=== PATIENT | female | born 1995 | race Caucasian/White ===

== ENCOUNTER 2019-09-10 09:26 | Emergency (ER) | payer BC ==
[2019-09-10] MEDS ORDERED: NS 0.9% 1000 ML** 1,000 ML IV ONE (11:06)
--- NOTE | 2019-09-10 11:06 | ED ---
HPI Chest Pain - HPI Summary HPI Summary: 24 year old F presenting to [facility] accompanied by boyfriend Kiran complains of worsening sharp pain located under her left breast that started last night while she was sitting on the couch. Denies nausea, back painStates she has never had these symptoms before. States she took 2 tablets of regular strength Tylenol with mild relief at 06:30 today. Pain is again increasing. No recent fall/injury/trauma. The patient rates the pain 5/10 in severity per nurse triage note. Symptoms aggravated by inspiration and bending over forward. Does not feel SOB but pain increases with deep inspiration. Symptoms alleviated by pulling shoulders back in an upright position. Patient states she is 29 weeks . Reports feeling good,a active movement, no vaginal LOF. She is followed by [facility]. States she called them today, spoke to nurse Powder Truck Driver and was referred to the ED. States she feels baby movements but not kicking up on to her ribs. Denies vaginal discharge, vaginal bleeding, burning/pain with urination. States she takes vitamins. Last ultrasound was 20 weeks ago. No smoking, drugs, alcohol. Patient is employed at [employer]. Patients medication reviewed this visit. - History of Current Complaint Chief Complaint: EDChestWallPain Time Seen by Provider: 09/10/19 09:53 Hx Obtained From: Patient Onset/Duration: Started Hours Ago, Still Present Timing: Constant Current Severity: Moderate Pain Intensity: 5 Pain Scale Used: 0-10 Numeric Character: Sharp/Stabbing Aggravating Factor(s): Other: - inspiration, bending over forward Alleviating Factor(s): Other: - pulling shoulders back in an upright position Associated Signs and Symptoms: Positive: Negative - nausea, back pain, vaginal discharge, vaginal bleeding, burning/pain with urination - Allergy/Home Medications Allergies/Adverse Reactions: Allergies Allergy/AdvReac Type Severity Reaction Status Date / Time No Known Allergies Allergy Verified 12/09/15 13:12 Home Medications: Home Medications [id number]/Iron Fum/Folic/Docusate [ 19 Tablet] 1 each PO DAILY 09/10/19 [ History Confirmed 09/10/19] PMH/Surg Hx/FS Hx/Imm Hx Previously Healthy: Yes Endocrine/Hematology History: Denies: Hx Diabetes, Hx Thyroid Disease Cardiovascular History: Denies: Hx Hypertension Respiratory History: Denies: Hx Asthma, Hx Chronic Obstructive Pulmonary Disease (COPD) GI History: Denies: Hx Ulcer - Surgical History Surgery Procedure, Year, and Place: None Infectious Disease History: No Infectious Disease History: Denies: Hx Hepatitis, Traveled Outside the [place] in Last 30 Days - Family History Known Family History: Positive: Non-Contributory Negative: Diabetes - Social History Occupation: Employed Full-time - at [employer] Lives: With Family Alcohol Use: None Hx Substance Use: No Substance Use Type: Reports: None Hx Tobacco Use: Yes Smoking Status (MU): Former Smoker Review of Systems Constitutional: Negative Eyes: Negative ENT: Negative Positive: Chest Pain Gastrointestinal: Negative Negative: Nausea Genitourinary: Negative - vaginal bleeding Negative: burning, discharge, pain Musculoskeletal: Negative - back pain Skin: Negative Neurological: Negative All Other Systems Reviewed And Are Negative: Yes Physical Exam - Summary Physical Exam Summary: Vital Signs Reviewed: Yes A+Ox3, mild discomfort Eyes: Conjunctiva Clear, AUR[place]A. EOM intact and full ENT: Hearing grossly normal mmoist, uvula midline, no exudate, no erythema Neck: Positive: Supple Respiratory: Positive: No respiratory distress, No accessory muscle use + CTA throughout no w/r Cardiovascular: RRR nl s1, s2 no m/r CBT <2 sec mild discomfort epigastric with direct palp - no guarding, no rebound mild pain with palpation of ribs abd soft gravid, + BS nt/nd no guarding, no distension Musculoskeletal Exam: DE LA GARZA x 4 without difficulty Strength Intact, ROM Intact Neurological: Positive: Alert, + sensation throughout Psychological: Positive: Normal Response To Family Skin: Positive: no rash, no ecchymosis Triage Information Reviewed: Yes Vital Signs On Initial Exam: Initial Vitals Temp Pulse Resp BP Pulse Ox 98.6 F 78 16 144/80 98 09/10/19 09:32 09/10/19 09:32 09/10/19 09:32 09/10/19 09:32 09/10/19 09:32 Vital Signs Reviewed: Yes Procedures - Sedation Patient Received Moderate/Deep Sedation with Procedure: No Diagnostics - Vital Signs Vital Signs Temp Pulse Resp BP Pulse Ox 09/10/19 10:17 83 133/86 97 09/10/19 10:00 81 96 09/10/19 09:49 80 99 09/10/19 09:47 88 142/94 98 09/10/19 09:32 98.6 F 78 16 144/80 98 - Laboratory Result Diagrams: 09/10/19 11:28 Lab Statement: Any lab studies that have been ordered have been reviewed, and results considered in the medical decision making process. - CT Chest CTA CT Interpretation Completed By: Radiologist Summary of CT Findings: SLIGHTLY LIMITED EXAM, NO EVIDENCE FOR PULMONARY EMBOLISM. ED physician has reviewed this report. - EKG 1001 Cardiac Rate: NL - 74 BPM EKG Rhythm: Sinus Rhythm Summary of EKG Findings: No acute STT changes Re-Evaluation - Re-Evaluation First Eval Re-Evaluation Time: 11:38 Change: Unchanged - HR in the 130s per nurse Second Eval Re-Evaluation Time: 12:14 Change: Unchanged Comment: reviewed conversation with Dr. Zabala - risks of imaging. agreeable to have CTA Chest. had minimal improvement with Tylenol. declined narcotics. will give more fluids. states she spoke to nurse news specialist at [facility] [employer] PROJECT MANAGER Third Eval Re-Evaluation Time: 14:10 Change: Unchanged Comment: informed of CTA Chest results. agrees to discharge. will give work note. strict return precautions - sob, fever, uncontrolled pain. contact obgyn hospitalist physician for f/u this week. pt's mother also in room at this time Chest Pain Course/Dx - Course Course Of Treatment: Patient's a 24-year-old female who is 29 weeks presenting with sharp left pain under her left ribs since last night. Patient states history respiratory no trauma. Patient shortness of breath but states pain is worse with deep breath. Patient to take Tylenol this morning around 6: 30 with mild improvement. Hasn't taken an analgesic since. Patient states she spoke to [facility] who sent her to the ED. Patient without a history of blood clots personally examined. No calf pain or cramping. Patient denies lightheadedness. EKG was reviewed. She does have inverted T-wave in 3 but otherwise no acute process noted. Vital signs are stable. Discussed with patient options. At this time patient will take some Tylenol declined morphine. Discussed the patient will check labs and touch base with [employer]S [employer]INE[employer]. not tachy, sats 98%. Will do a d-dimer. Patient needs imaging likely with CTA will discuss with SYSTEMS TEST ENGINEER and radiology first. Patient and significant other in agreement with plan. Will reassess. We'll also document heart tones. - Diagnoses Provider Diagnoses: Pleuritic pain - Provider Notifications Discussed Care Of Patient With: Ayse Gruber Time Discussed With Above Provider: 12:00 Instructed by Provider To: Other - Dr. Gruber OBGYN, recommends CTA Chest Discharge ED - Sign-Out/Discharge Documenting (check all that apply): Patient Departure - Discharge Plan Condition: Stable Disposition: HOME Patient Education Materials: Pleurisy (DC) Forms: *Gen. Provider Communication, *Work Release Referrals: Elena Floyd CNM [Certified Nurse Powder Truck Driver] - No Primary Care Phys,NOPCP [Primary Care Provider] - Additional Instructions: - stay well hydrated - drink plenty of non-alcoholic, non-caffinated beverages - take deep, slow breaths several times and hour to help fully expand your lungs - continue to take your vitamins. - Okay to take Tylenol every 6 hours as needed for pain - Okay to apply heat to your rib area - contact your nurse-news specialist to schedule a recheck this week. If you develop a fever, contact your nurse news specialist or return to the emergency department - Billing Disposition and Condition Condition: STABLE Disposition: Home - Attestation Statements Document Initiated by Scribe: Yes Documenting Scribe: Aretha Maldonado Provider For Whom Nigel is Documenting (Include Credential): Demetria Mascorro MD Scribe Attestation: Aretha Guo, scribed for Demetria Mascorro MD on 09/14/19 at 1617. Scribe Documentation Reviewed: Yes Provider Attestation: The documentation as recorded by the scribeAretha accurately reflects the service I personally performed and the decisions made by me, Demetria Mascorro MD Status of Scribe Document: Viewed
[2019-09-10] MEDS ORDERED: Acetaminophen TAB* 325 MG PO ONE (11:07)
[2019-09-10 11:56] LABS: Albumin 3.4 g/dL (3.2-5.2); Albumin/Globulin Ratio 1.2 (1-3); BUN/Creatinine Ratio 17.8 (8-20); Calcium 8.6 mg/dL (8.6-10.3); EGFR African American 203.8 (>60); EGFR Non-African American 168.4 (>60); Globulin 2.8 g/dL (2-4); Magnesium 1.7 mg/dL (1.9-2.7); Potassium 4.2 mmol/L (3.5-5.0); Total Bilirubin 0.3 mg/dL (0.2-1.0); Total Protein 6.2 g/dL (6.4-8.9)
[2019-09-10] MEDS ORDERED: NS 0.9% 1000 ML** 1,000 ML IV SCH (12:15)
[2019-09-10] MEDS ORDERED: Magnesium Sulfate 2 GM IV* 2 GM/50 ML BAG IVPB ONE (12:21)
[2019-09-10] MEDS ORDERED: Iohexol 350* (CONTRAST) 500 ML MDV IV ONE (12:53)
[2019-09-10 13:06] LABS: Urine Appearance Clear; Urine Bilirubin Negative (Negative); Urine Blood Negative (Negative); Urine Color Straw; Urine Glucose Negative (Negative); Urine Ketones Negative (Negative); Urine Nitrite Negative (Negative); Urine Protein Negative (Negative); Urine Specific Gravity 1.005 (1.010-1.030); Urine Urobilinogen Negative (Negative)
[2019-09-10 14:22] VITALS: BP 126/80
== END 2019-09-10 14:20 | disposition home or self-care (01) ==
LOC: ED 09:26
DX: R07.81 Pleurodynia (principal); Z87.891 Personal history of nicotine dependence
CPT/HCPCS: 36415; 71275; 80053; 81003; 83735; 84484; 85379; 93005; 96361; 96365; 99283; A9270-GY; J3475; Q9967

== ENCOUNTER 2019-11-14 11:34 | Inpatient (IN) | payer BC ==
[2019-11-14 12:03] LABS: Urine Appearance Cloudy; Urine Bilirubin Negative (Negative); Urine Blood Negative (Negative); Urine Color Yellow; Urine Glucose Negative (Negative); Urine Ketones Negative (Negative); Urine Nitrite Negative (Negative); Urine Protein 1+(30 mg/dL) (Negative); Urine Urobilinogen Negative (Negative)
[2019-11-14 12:06] LABS: Urine Bacteria 1+ (Absent); Urine Red Blood Cell Trace(0-2/hpf) (Absent); Urine Squamous Epithelial Cell Present (Absent); Urine White Blood Cell 2+(11-20/hpf) (Absent)
[2019-11-14 12:26] LABS: Urine Benzodiazepine Screen None Detected (None Detect); Urine Opiates Screen None Detected (None Detect)
[2019-11-14 12:43] LABS: ABS Lymphocytes 1.1 10^3/ul (1.0-4.8); ABS Monocytes 0.5 10^3/ul (0-0.8); ABS Neutrophils 6.3 10^3/ul (1.5-7.7); Eosinophil % 0.1 %; Hematocrit 34 % (35-47); Hemoglobin 11.8 g/dL (12.0-16.0); Lymphocyte % 13.8 %; Mean Corpuscular HGB Conc 35 g/dL (31-36); Mean Corpuscular Hemoglobin 32 pg (27-31); Mean Corpuscular Volume 92 fL (80-97); Mean Platelet Volume 9.7 fL (7.4-10.4); Nucleated Red Blood Cells % 0.1; Platelet Count 115 10^3/uL (150-450); Red Blood Count 3.65 10^6 /uL (3.70-4.87); Red Cell Distribution Width 13 % (10-15); White Blood Count 7.8 10^3/uL (3.5-10.8)
[2019-11-14 12:46] LABS: Albumin 3.2 g/dL (3.2-5.2); Albumin/Globulin Ratio 1.1 (1-3); BUN/Creatinine Ratio 18.5 (8-20); Calcium 8.8 mg/dL (8.6-10.3); EGFR African American 165.1 (>60); EGFR Non-African American 136.5 (>60); Globulin 2.8 g/dL (2-4); Potassium 3.4 mmol/L (3.5-5.0); Total Bilirubin 0.2 mg/dL (0.2-1.0); Uric Acid 4.5 mg/dL (2.3-6.6)
[2019-11-14] MEDS ORDERED: Buffered Lidocaine 1% SYRIN* 1 ML/SYRINGE INTRADERM ONE (14:38)
[2019-11-14] MEDS ORDERED: Misoprostol TAB* 100 MCG PO ONE ×2 (14:38→20:26)
[2019-11-14] MEDS ORDERED: Lactated Ringers 1000 ML Bag* 1,000 ML IV ONE (14:38)
--- NOTE | 2019-11-14 15:25 | HP ---
General Information - Reason for Visit Pt admitted for cervical ripening/ IOL in the context of preeclampsia without severe features at 38 3/7 weeks gestation. - General Information Maternal Age: 24 Grav: 2 Para: 0 SAB: 0 IEA: 1 Estimated Due Date: 11/25/19 Determined By: LMP Gestational Age in Weeks/Days: 38 3/7 Maternal Blood Type and Rh: O Positive - Results this Serology/RPR Result: Non-Reactive Rubella Result: Non-Immune HBsAg Result: Negative HIV Result: Negative GBS Culture Result: Negative Past Medical History Delivery History: See Records - primigravida Pertinent Past Medical History: See Records - depression/ anxiety Pertinent Past Surgical History: None Pertinent Family History: Non-Contributory - Antepartal Records Antepartal Records: Reviewed, Complicated by: - thrombocytopenia, preeclampsia, rubella and varicella nonimmune Review of Systems Constitutional: Comfortable CV Complaint: No Respiratory: Shortness of Breath: No Gastrointestinal: No Nausea/Vomiting Genitourinary: No Dysuria, No Bleeding, No Leaking Fluid Musculoskeletal: No Complaint, No Epigastric Pain Neurological: No Headache, No Visual Changes Movement: Normal Exam Allergies/Adverse Reactions: Allergies No Known Allergies Allergy (Verified 12/09/15 13:12) T-99.0, P-96, R-20, BP 145/92, O2-98% Lab Values - Entire Visit: Laboratory Tests 11/14/19 11/14/19 11/14/19 11:55 11:55 12:15 WBC RBC Hgb Hct MCV MCH MCHC RDW Plt Count MPV Neut % (Auto) Lymph % (Auto) Vernon % (Auto) Eos % (Auto) Baso % (Auto) Absolute Neuts (auto) Absolute Lymphs (auto) Absolute Monos (auto) Absolute Eos (auto) Absolute Basos (auto) Absolute Nucleated RBC Nucleated RBC % Sodium 138 Potassium 3.4 L Chloride 109 Carbon Dioxide 20 L Anion Gap 9 BUN 10 Creatinine 0.54 Est GFR ( Amer) 165.1 Est GFR (Non-Af Amer) 136.5 BUN/Creatinine Ratio 18.5 Glucose 110 H Uric Acid 4.5 Calcium 8.8 Total Bilirubin 0.20 AST 13 ALT 9 Alkaline Phosphatase 80 Total Protein 6.0 L Albumin 3.2 Globulin 2.8 Albumin/Globulin Ratio 1.1 Urine Color Yellow Urine Appearance Cloudy Urine pH 6.0 Ur Specific Maynard 1.020 Urine Protein 1+(30 mg/dl) A Urine Ketones Negative Urine Blood Negative Urine Nitrate Negative Urine Bilirubin Negative Urine Urobilinogen Negative Ur Leukocyte Esterase 1+ A Urine WBC (Auto) 2+(11-20/hpf) A Urine RBC (Auto) Trace(0-2/hpf) Ur Squamous Epith Cells Present A Urine Bacteria 1+ A Hyaline Casts Present A Urine Glucose Negative Urine Ascorbic Acid * A Urine Opiates Screen None detected Ur Barbiturates Screen None detected Ur Phencyclidine Scrn None detected Ur Amphetamines Screen None detected U Benzodiazepines Scrn None detected Urine Cocaine Screen None detected U Cannabinoids Screen None detected Blood Type Antibody Screen 11/14/19 11/14/19 12:15 12:15 WBC 7.8 RBC 3.65 L Hgb 11.8 L Hct 34 L MCV 92 MCH 32 H MCHC 35 RDW 13 Plt Count 115 L MPV 9.7 Neut % (Auto) 80.2 Lymph % (Auto) 13.8 Vernon % (Auto) 5.8 Eos % (Auto) 0.1 Baso % (Auto) 0.1 Absolute Neuts (auto) 6.3 Absolute Lymphs (auto) 1.1 Absolute Monos (auto) 0.5 Absolute Eos (auto) 0.0 Absolute Basos (auto) 0.0 Absolute Nucleated RBC 0.0 Nucleated RBC % 0.1 Sodium Potassium Chloride Carbon Dioxide Anion Gap BUN Creatinine Est GFR ( Amer) Est GFR (Non-Af Amer) BUN/Creatinine Ratio Glucose Uric Acid Calcium Total Bilirubin AST ALT Alkaline Phosphatase Total Protein Albumin Globulin Albumin/Globulin Ratio Urine Color Urine Appearance Urine pH Ur Specific Maynard Urine Protein Urine Ketones Urine Blood Urine Nitrate Urine Bilirubin Urine Urobilinogen Ur Leukocyte Esterase Urine WBC (Auto) Urine RBC (Auto) Ur Squamous Epith Cells Urine Bacteria Hyaline Casts Urine Glucose Urine Ascorbic Acid Urine Opiates Screen Ur Barbiturates Screen Ur Phencyclidine Scrn Ur Amphetamines Screen U Benzodiazepines Scrn Urine Cocaine Screen U Cannabinoids Screen Blood Type O Positive Antibody Screen Negative - Measurements Height: 5 ft 4 in Weight: 104.326 kg Weight in lbs: 230.023145 Body Mass Index (BMI): 39.4 Pre- Weight: 77.111 kg Weight Gained This : 60 lbs and 0 ozs - Exam Breast: Breast Exam Deferred CVA: No CVA Tenderness Extremities: Edema - bilateral pedal Heart: Normal Rhythm/Heart Sounds HEENT: No Significant Findings Lungs: Clear Bilaterally Rectal: Rectal Exam Deferred Reflexes: DTR 2+ Thyroid: No Thyromegaly - Abdominal Exam Abdomen Exam: Non-Tender, Fundal Height Consistent with Dates Targeted Exam Findings See L&D Outpatient Visit Provider Note for Findings: N/A Estimated Weight: 8# Cervical Exam: Closed Effacement: Thick Station: High Presenting Part: Vertex Membrane Status: Intact Bleeding/Discharge: None EFM Findings - External Monitor Findings Baseline Heart Rate: 120 External Monitor Findings: Accelerations Present, No Pattern of Variable or Late Decelerations, Variability Moderate, Baseline Stable Contractions: Irregular, Mild Assessment/Plan - Assessment 24 year old at 38 3/7 weeks gestation with preeclampsia without severe features and mild thrombocytopenia, cervix currently unfavorable. No evidence of acidemia, membranes intact. - Obstetrical Risk Factors Obstetrical Risk Factors: Obesity, PreEclampsia - Plan Plan: Cervical Ripening, Admit - Anticipate Vaginal Delivery - Date/Time of Admission Date of Admission: 11/14/19 Time of Admission: 14:43
--- NOTE | 2019-11-14 17:32 | PN ---
Progress Note - Progress Note Date of Service: 11/14/19 SOAP: Subjective: Pt felt ctx initially after misoprostol administration, but now no longer feeling them. Comfortable. and mother at bedside. Objective: Cervical exam deferred. FHR: Baseline 125/ moderate variability/ + accels/ no decels UCs: 3-6 minutes, mild BP: 144/88 Assessment: Pt with preeclampsia without severe features, undergoing cervical ripening. No evidence of acidemia or chorioamnionitis. Plan: Reevaluate in 2 hours or as needed. Consider further cervical ripening at that time
--- NOTE | 2019-11-14 20:36 | PN ---
Progress Note - Progress Note Date of Service: 11/14/19 SOAP: Subjective: Pt fairly comfortable, reports some intermittent cramping, but no strong ctx. Objective: Cervical exam deferred. FHR: Baseline 130/ moderate variability/ + accels/ no decels UCs: mild, irregular BP: 146/ 91 Assessment: Pt with preeclampsia without severe features, undergoing cervical ripening. Not in active labor. Plan: Cervical exam deferred as pt clearly not in active labor, and has difficulty tolerating exams. As she is only frandy irregularly, will do another dose or PO misoprostol.
[2019-11-14] MEDS ORDERED: hydrOXYzine HCL TAB* 50 MG PO ONE (22:41)
[2019-11-15] MEDS ORDERED: Misoprostol TAB* 100 MCG PO ONE (04:32)
--- NOTE | 2019-11-15 04:32 | PN ---
Progress Note - Progress Note Date of Service: 11/15/19 SOAP: Subjective: Pt sleeping comfortably, not aware of ctx Objective: Cervical exam deferred FHR: Baseline 135/ moderate variability/ + accels/ no decels UCs: 3-6 minutes BP: 138/93 Temp: 98.7 Assessment: Pt not in active labor. Preeclampsia without severe features. No evidence of acidemia. Plan: As pt highly intolerant of vaginal exams and not in active labor, will repeat another dose of oral misoprostol. Will plan vaginal exam and reassessment of plan of care 4 hours later or as needed.
[2019-11-15] MEDS ORDERED: Dinoprostone* 10 MG VAG.SUPP VAGINAL ONE (08:31)
--- NOTE | 2019-11-15 08:38 | PN ---
Progress Note - Progress Note Date of Service: 11/15/19 Note: S: States UCs have down since last dose of misoprostol. O: B/P: 138/93, P: 65, R: 16, T: 98.7 FHR: baseline 130, moderate variability, + accelerations, no decelerations UCs: q 2-8, mild VE: closed/high/thick A: IUP at 38 4/7 weeks Category I FHR, no evidence of metabolic acidemia Not in labor GBS negative Preeclampsia without severe features Camacho score: 2 P: Discussed further cervical ripening, recommend Cervidil Irlanda and her agree Reassess PRN Anticipate SVB
--- NOTE | 2019-11-15 23:23 | PN ---
Progress Note - Progress Note Date of Service: 11/15/19 Note: S: Feeling some cramping. Partner at bedside for support O: B/P: 140/94, P: 65, R: 19, T: 98.1 FHR: baseline 120, moderate variability, +accelerations, no decelerations UCs: irregular, mild VE deferred, pt unable to tolerate cervical exam at this time A: IUP at 38 4/7 weeks Category I FHR, no evidence of metabolic acidemia Not in labor P: Offered oral misoprostol vs trial of pitocin vs resting overnight, pt desires trial of pitocin PARQ discussion re: pitocin Continuous EFM while on pitocin Reassess PRN Anticipate SVB
[2019-11-15] MEDS ORDERED: Oxytocin in LR* 20 UNITS/1,000 ML BAG IVPB SCH (23:45)
[2019-11-16] MEDS ORDERED: hydrOXYzine HCL TAB* 50 MG PO ONE ×2 (00:55→21:00)
[2019-11-16] MEDS: Lactated Ringers 1000 ML Bag* 1,000 ML IV SCH (01:24)
--- NOTE | 2019-11-16 09:52 | PN ---
Progress Note - Progress Note Date of Service: 11/16/19 Note: S: Not feeling UCs. Was able to rest at night O: B/P: 145/96, P: 75, R: 20, T: 98.5 FHR: 135, moderate variability, +Accelerations, no decelerations UCs: q 1.5-3, mild VE: Posterior. Unable to reach cervix due to pt discomfort with exam. Suspect unchanged from previous exam Pitocin at 16 mu/min Pitting edema of BLE A: IUP at 38 5/7 weeks Category I FHR, no evidence of metabolic acidemia Not in labor P: Discussed continuing pitocin vs discontinuing and considering further ripening. Will continue pitocin until it has been 12 hrs and reassess at that time. Continue q2hr B/Ps and I&O while awake Anticipate SVB
[2019-11-16] MEDS ORDERED: Ondansetron INJ* 2 MG/ML VIAL IV PRN (10:09)
[2019-11-16] MEDS ORDERED: Misoprostol TAB* 100 MCG PO ONE (13:58)
--- NOTE | 2019-11-16 14:07 | PN ---
Progress Note - Progress Note Date of Service: 11/16/19 Note: S: Feeling comfortable. Partner and grandparents at bedside. O: B/P: 138/98, P: 78, R: 20, T: 98.8 FHR: baseline 140, moderate variability, +accelerations, no decelerations UCs: Irregular, mild VE deferred, do not suspect cervical change since last exam Pitocin off since 1300 1+ pitting edema of BLE A: IUP at 38 5/7 weeks Category I FHR, no evidence of metabolic acidemia P: Discussed options for further cervical ripening. Opts for oral misoprostol 50 mcg Continue I&O, q2hr B/Ps while awake Reassess PRN Anticipate SVB
[2019-11-16] MEDS ORDERED: Lidocaine 2% JELLY* 6 ML JELLY TOPICAL ONE (15:45)
[2019-11-16] MEDS ORDERED: Dinoprostone* 10 MG VAG.SUPP VAGINAL ONE (18:16)
[2019-11-16 19:18] LABS: ABS Lymphocytes 1.6 10^3/ul (1.0-4.8); ABS Monocytes 0.7 10^3/ul (0-0.8); ABS Neutrophils 5.6 10^3/ul (1.5-7.7); Eosinophil % 0.6 %; Hematocrit 35 % (35-47); Hemoglobin 12.1 g/dL (12.0-16.0); Lymphocyte % 19.8 %; Mean Corpuscular HGB Conc 35 g/dL (31-36); Mean Corpuscular Hemoglobin 32 pg (27-31); Mean Corpuscular Volume 93 fL (80-97); Nucleated Red Blood Cells % 0.1; Platelet Count 114 10^3/uL (150-450); Red Blood Count 3.74 10^6 /uL (3.70-4.87); Red Cell Distribution Width 13 % (10-15); White Blood Count 7.9 10^3/uL (3.5-10.8)
[2019-11-16 19:35] LABS: Albumin 3.3 g/dL (3.2-5.2); Albumin/Globulin Ratio 1.1 (1-3); Calcium 8.9 mg/dL (8.6-10.3); EGFR African American 161.7 (>60); EGFR Non-African American 133.6 (>60); Globulin 2.9 g/dL (2-4); Potassium 3.9 mmol/L (3.5-5.0); Total Bilirubin 0.3 mg/dL (0.2-1.0); Total Protein 6.2 g/dL (6.4-8.9)
--- NOTE | 2019-11-16 19:41 | PN ---
Progress Note - Progress Note Date of Service: 11/16/19 Note: S: Has moved to room 10. Enjoying the window and more space to walk around. Agrees to try lidocaine gel and nitrous for vaginal exam O: B/P: 156/94, P: 72, R: 20, T: 98.0 FHR: baseline 120, moderate variability, +accelerations, no decelerations UCs: irregular, mild VE: closed/50/-2. Pelvic floor notably more relaxed than previous exams A: IUP at 38 5/7 weeks Category I FHR, no evidence of metabolic acidemia Camacho score: 2 P: Cervidil placed. May want to use nitrous again during labor Repeat CBC and CMP drawn Reassess PRN Anticipate SVB
[2019-11-17] MEDS ORDERED: Lidocaine 2% JELLY* 6 ML JELLY TOPICAL ONE ×2 (06:35→14:57)
--- NOTE | 2019-11-17 09:17 | PN ---
Progress Note - Progress Note Date of Service: 11/17/19 Note: S: Pt slept overnight until about 0430 when stronger cramps from the Cervidil woke her. She's had breakfast and is resting in bed. Agrees to trial VE with lidocaine (which has been in place for 30 min) and nitrous oxide. O: BP 143/97 (Running 130's-150's/80's-90's) HR 80 RR 20 T 98.5 SpO2 98% on RA FHT 125bpm. Moderate variability. +Accels. No decels UCs mild, irregular q 3-7 min VE: pt unable to tolerate with lidocaine and nitrous due to increased discomfort s/p Cervidil removal Pedal edema 4+ DTRs 2+ A: IUP at 38-6/7 with pre-eclampsia without severe features No evidence of metabolic acidemia Not in active labor Intolerant of internal vaginal exam P: Recommend trial of IV pitocin and early epidural placement with discomfort. Once comfortable will consider re-attempt of VE and possible amniotomy. Pt agrees.
[2019-11-17] MEDS ORDERED: Oxytocin in LR* 20 UNITS/1,000 ML BAG IVPB SCH (09:30)
[2019-11-17] MEDS: Lactated Ringers 1000 ML Bag* 1,000 ML IV SCH ×2 (09:39→14:01)
[2019-11-17] MEDS ORDERED: OBEPIDURAL* 250 ML EPIDURAL ONE (13:09)
[2019-11-17] MEDS ORDERED: Famotidine TAB* 20 MG PO PRN (14:03)
[2019-11-17] MEDS ORDERED: Phenylephrine 40 MCG/ML SYRINGE IV PUSH PRN (14:03)
[2019-11-17] MEDS ORDERED: Sodium Citrate/Citric Acid* 15 ML UDC PO PRN (14:03)
[2019-11-17] MEDS ORDERED: Lactated Ringers 1000 ML Bag* 1,000 ML IV ONE (14:03)
[2019-11-17] MEDS ORDERED: Lactated Ringers 1000 ML Bag* 1,000 ML IV SCH (15:00)
--- NOTE | 2019-11-17 16:05 | PN ---
Progress Note - Progress Note Date of Service: 11/17/19 Note: S: Pt comfortable s/p epidural placement. Prior to exam lidocaine gel placed and pt encouraged in use of bolus button. O: BP 138/74 HR 65 RR 20 T 99.1 FHT 130bpm. Moderate variability. +Accels. No decels UCs q 2-4 min IV pitocin at 10mu/min VE 1-2cm/50%/vtx -2. Pt tolerated well LE 4+ pitting edema. SCDs on and running with pt in bed DTRs 2+ A: IUP at 38-6/7 with pre-eclampsia without severe features No evidence of fetale metabolic acidemia Good pain control & pt coping with CEI in place P: Continue IV pitocin. Enc frequent position changes while awake. Close monitoring of maternal/ status. Consider amniotomy PRN.
[2019-11-17 19:01] LABS: ABS Lymphocytes 1.7 10^3/ul (1.0-4.8); ABS Monocytes 0.7 10^3/ul (0-0.8); ABS Neutrophils 4.7 10^3/ul (1.5-7.7); Eosinophil % 0.3 %; Hematocrit 33 % (35-47); Hemoglobin 11.2 g/dL (12.0-16.0); Lymphocyte % 23.7 %; Mean Corpuscular HGB Conc 34 g/dL (31-36); Mean Corpuscular Hemoglobin 32 pg (27-31); Mean Corpuscular Volume 93 fL (80-97); Nucleated Red Blood Cells % 0.1; Platelet Count 103 10^3/uL (150-450); Red Blood Count 3.54 10^6 /uL (3.70-4.87); Red Cell Distribution Width 13 % (10-15); White Blood Count 7.1 10^3/uL (3.5-10.8)
[2019-11-17 19:18] LABS: Albumin/Globulin Ratio 1.1 (1-3); BUN/Creatinine Ratio 17.2 (8-20); Calcium 8.4 mg/dL (8.6-10.3); EGFR African American 135.7 (>60); EGFR Non-African American 112.2 (>60); Globulin 2.7 g/dL (2-4); Potassium 3.8 mmol/L (3.5-5.0); Total Bilirubin 0.2 mg/dL (0.2-1.0); Total Protein 5.7 g/dL (6.4-8.9); Uric Acid 3.8 mg/dL (2.3-6.6)
--- NOTE | 2019-11-17 21:24 | PN ---
Progress Note - Progress Note Date of Service: 11/17/19 Note: S: Pt resting comfortably in a semi reclined position. Napping. Agrees to VE at this time. Denies SONG. No visual changes. No RUQ pain O: BP 140/90 HR 79 T 99.7 FHT 135bpm. Moderate variability. +Accels. No decels UCs q 2-4, IV pit at 24 mu/min VE 2-3/80%/vtx -1 +bloody show LE 4+ pitting edema, SCDs in place A: IUP at 38-6/7 with pre-eclampsia without severe features No evidence of metabolic acidemia Latent labor Good pain relief from CEI, good maternal coping P: Close monitoring of maternal status. Will hold IV pitocin at current dose for the next few hours then re-check and consider IV pitocin rest vs. amniotomy vs. both. Pt and FOB in agreement. Dr. Mccoy aware of pt presence and condition. Agrees with plan.
--- NOTE | 2019-11-18 02:06 | PN ---
Progress Note - Progress Note Date of Service: 11/18/19 Note: S: Pt resting comfortably in bed. Reports slightly more sensation compared to previously but coping well. RN continues to encourage frequent position changes. FOB sleeping O: BP with movement 150/97 prior BP 138/87 HR 73 T 99.4 FHT 130bpm. Moderate variability. +Accels. No decels UCs q 2-4 IV pitocin held at 24mu/min since last check VE 2-3cm/80%/vtx -1, AROM to blood stained but otherwise clear fluid. Pt slightly more uncomfortable this time but pt tolerated well LE 4+ pitting edema, SCDs on and running A: IUP at 39 weeks with pre-eclampsia without severe features No evidence of metabolic acidemia Good pain control with CEI running/Good pt coping P: PARQ amniotomy and pt agrees. Done. Plan IV pitocin rest until 0400 then restart at 6mu/min with a new bag. Pt agrees. Orders updated to reflect. Close monitoring of maternal/ status. Encourage rest. Discussed possible need for bolus and/or replacement of epidural with more active labor if pt becomes more uncomfortable - this is not uncommon s/p early epidural placement. Pt will continue to monitor and let us know.
[2019-11-18] MEDS ORDERED: Acetaminophen TAB* 325 MG PO ONE (02:55)
[2019-11-18] MEDS ORDERED: Oxytocin in LR* 20 UNITS/1,000 ML BAG IVPB SCH (04:00)
[2019-11-18 07:43] LABS: Albumin 2.8 g/dL (3.2-5.2); BUN/Creatinine Ratio 15.3 (8-20); Calcium 8.2 mg/dL (8.6-10.3); EGFR African American 149.1 (>60); EGFR Non-African American 123.2 (>60); Globulin 2.7 g/dL (2-4); Potassium 3.8 mmol/L (3.5-5.0); Total Bilirubin 0.3 mg/dL (0.2-1.0); Total Protein 5.5 g/dL (6.4-8.9); Uric Acid 4.4 mg/dL (2.3-6.6)
--- NOTE | 2019-11-18 07:43 | PN ---
Progress Note - Progress Note Date of Service: 11/18/19 Note: S: Pt resting comfortably in bed. Consents to VE at this time O: BP 138/87 HR 76 T 99.5 FHT 135bpm. Moderate variability. +Accels. No decels UCs q 2-4 IV pit at 16 mu/min VE 4-5/100%/vtx -1 LE 4+ pitting edema, SCDs on and running A: IUP at 39 weeks with pre-eclampsia without severe features Early active labor No evidence of metabolic acidemia Good pain relief with CEI in place, good maternal coping P: Continue IV pitocin. Close monitoring of maternal/ status. Report to Aamir De La Rosa CNM who will assume care at 0800
[2019-11-18 07:46] LABS: ABS Lymphocytes 1.2 10^3/ul (1.0-4.8); ABS Monocytes 0.7 10^3/ul (0-0.8); ABS Neutrophils 6.1 10^3/ul (1.5-7.7); Eosinophil % 0.1 %; Hematocrit 33 % (35-47); Lymphocyte % 15.4 %; Mean Corpuscular HGB Conc 34 g/dL (31-36); Mean Corpuscular Hemoglobin 32 pg (27-31); Mean Corpuscular Volume 94 fL (80-97); Mean Platelet Volume 9.8 fL (7.4-10.4); Nucleated Red Blood Cells % 0.2; Platelet Count 90 10^3/uL (150-450); Red Blood Count 3.49 10^6 /uL (3.70-4.87); Red Cell Distribution Width 13 % (10-15); White Blood Count 8.1 10^3/uL (3.5-10.8)
--- NOTE | 2019-11-18 08:33 | PN ---
Progress Note - Progress Note Date of Service: 11/18/19 Note: S: Pt resting comfortably in bed. Reports feeling rectal pressure with contractions. O: BP 134/88 HR 76 T 98.2 FHT 135bpm. Moderate variability. +Accels. No decels UCs q 2-4 IV pit at 16 mu/min VE deferred LE 4+ pitting edema, SCDs on and running A: IUP at 39 weeks with pre-eclampsia without severe features Active labor No evidence of metabolic acidemia Good pain relief with CEI in place, good maternal coping P: Continue IV pitocin. Close monitoring of maternal/ status. Sydney Valles MD aware of pt condition. Anticipate progression to
[2019-11-18] MEDS: OBEPIDURAL* 250 ML EPIDURAL SCH ×2 (08:46→16:16)
--- NOTE | 2019-11-18 09:39 | PN ---
Progress Note - Progress Note Date of Service: 11/18/19 Note: S: Pt uncomfortable in bed. Breathing and moaning with contractions. Reports feeling rectal pressure with contractions and back pain. O: BP 134/88 HR 76 T 98.2 FHT 135bpm. Moderate variability. +Accels. No decels UCs q 2-4 IV pit at 22 mu/min VE 6/80/-1, swelling of right anterior surface of the cervix LE 4+ pitting edema, SCDs on and running A: IUP at 39 weeks with pre-eclampsia without severe features Active labor No evidence of metabolic acidemia Incomplete pain relief with CEI in place P: Continue IV pitocin Anesthesia aware of pt pain - will evaluate Position changes with peanut ball Close monitoring of maternal/ status. Anticipate progression to
[2019-11-18] MEDS ORDERED: Lidocaine 2% w/ EPI 1:200,000* 20 ML SDV VIAL ONE (09:40)
[2019-11-18] MEDS ORDERED: Lidocaine 2% VISCOUS* 15 ML UDC ONE (13:55)
[2019-11-18] MEDS ORDERED: fentaNYL* 50 MCG/ML 2 ML VIAL (100 MCG VIAL) ONE (14:07)
[2019-11-18] MEDS ORDERED: Glycerin ADULT SUPP PR PRN (14:35)
[2019-11-18] MEDS ORDERED: Acetaminophen TAB* 325 MG PO PRN (14:35)
[2019-11-18] MEDS ORDERED: Witch Hazel PAD* JAR TOPICAL PRN (14:35)
[2019-11-18] MEDS ORDERED: Varicella Virus Vaccine Live* 0.5 ML VIAL SUBCUT ONE (14:35)
[2019-11-18] MEDS ORDERED: Misoprostol TAB* 200 MCG PR ONE (14:35)
[2019-11-18] MEDS ORDERED: Measles, Mumps,Rubella VACC* 0.5 ML/VIAL SUBCUT ONE (14:35)
[2019-11-18] MEDS ORDERED: Dibucaine 1% 28.35 GM TUBE PR PRN (14:35)
[2019-11-18] MEDS ORDERED: fentaNYL* 50 MCG/ML 2 ML VIAL (100 MCG VIAL) IV SLOW PU PRN (14:39)
--- NOTE | 2019-11-18 14:40 | PROCNOTE ---
[facility] OB: Delivery Note - Delivery A Date of : 11/18/19 Time of : 13:20 [place] Sex: Male Weight at : 7 lb 12 oz Score 1 Minute: 8 Score 5 Minutes: 9 Gestational Age in Weeks and Days at Delivery: 39 Weeks and 0 Days Delivery Method: Spontaneous Vaginal - Patient delivered by Kiana De La Rosa CNM. Labor: Induced - Mild Preeclampsia Did Patient attempt ?: N/A, No Previous Amniotic Fluid: Clear Estimated Blood Loss: 500 Anesthesia/Analgesia: CEI for Labor, Other - Fentanyl 50mcg IV x 1 dose for placenta removal - Nursery Level of Nursery: Regular/Bedside - Perineum Perineal Repair: None - Events Delivery Events of Note: Pitocin During Labor, Retained Placenta, Manual Removal of Placenta - By Dr. Valles see procedure note below. - Risk for Falls Delivered OB Patient- Risk for Falls: Heavy Bleeding Fall Risk: Patient is at High Risk for Falls - Additional Delivery Notes Additional Delivery Notes: Procedure note Pre-procedure diagnosis-Retained placenta post vaginal delivery Post-procedure diagnosis-Same Procedure -Manual removal of placenta Physician-Sunny Valles M.D. Analgesia-IV fentanyl 50mcg x 1 dose EBL 200 cc Specimen Placenta and umbilical cord Complications-None Procedure note. Patient was in the LD bed post vaginal delivery 35 minutes prior to procedure. Bedside ultrasound revealed retained placenta within the uterus posteriorly. On Bimanual exam only the umbilical cord was within the vaginal canal, with the cervix noted to be dilated. The patient was given IV fentanyl after which I proceeded to remove the placenta manually under ultrasound visualization. The placenta was removed completely and intact. the patient then received 800 mcg of cytotec rectally and IV pitocin to curtail bleeding and help with uterine atony. Ultrasound revealed an empty endometrium and bimanual exam revealed a firm uterus. The patient tolerated the procedure well and stayed at the LD bed with infant and family.
[2019-11-18] MEDS ORDERED: ceFAZolin VIAL(*) 2 GM in NS 0.9% 100 ML* 100 ML IVPB ONE (14:43)
[2019-11-18] MEDS ORDERED: Lactated Ringers 1000 ML Bag* 1,000 ML IV SCH (15:00)
[2019-11-18 15:13] LABS: ABS Lymphocytes 0.5 10^3/ul (1.0-4.8); ABS Monocytes 0.6 10^3/ul (0-0.8); ABS Neutrophils 11.5 10^3/ul (1.5-7.7); Hematocrit 34 % (35-47); Hemoglobin 11.5 g/dL (12.0-16.0); Lymphocyte % 4.3 %; Mean Corpuscular HGB Conc 34 g/dL (31-36); Mean Corpuscular Hemoglobin 32 pg (27-31); Mean Corpuscular Volume 93 fL (80-97); Mean Platelet Volume 9.5 fL (7.4-10.4); Nucleated Red Blood Cells % 0.1; Platelet Count 92 10^3/uL (150-450); Red Blood Count 3.63 10^6 /uL (3.70-4.87); Red Cell Distribution Width 13 % (10-15); White Blood Count 12.7 10^3/uL (3.5-10.8)
[2019-11-18] MEDS ORDERED: ceFAZolin* 2 GM* ONE DOSE (Duplex) IVPB (16:00)
[2019-11-18] MEDS: Oxytocin in LR* 20 UNITS/1,000 ML BAG IVPB SCH ×2 (17:15→23:13)
[2019-11-18] MEDS: Ibuprofen TAB* 600 MG PO SCH ×2 (17:15→23:25)
[2019-11-18] MEDS ORDERED: Simethicone TAB* 80 MG TAB.CHEW PO SCH (17:30)
[2019-11-18] MEDS ORDERED: Lidocaine 1% INJ* 10 MG/ML 30 ML SDV ONE (18:00)
[2019-11-18] MEDS: Docusate CAP* 100 MG PO SCH (20:25)
--- NOTE | 2019-11-18 21:26 | PN ---
Progress Note - Progress Note Date of Service: 11/18/19 Note: Called to the bedside by RN for "large gush of blood" Gush happened when pt stood up after resting in bed for a few hours Pt denies dizziness, lightheadedness, n/v Fundus firm, no bleeding noted on exam Increased rate of Pitocin Continue to monitor closely
[2019-11-18 23:08] LABS: ABS Lymphocytes 1.1 10^3/ul (1.0-4.8); ABS Monocytes 0.8 10^3/ul (0-0.8); ABS Neutrophils 9.5 10^3/ul (1.5-7.7); Hematocrit 27 % (35-47); Hemoglobin 9.3 g/dL (12.0-16.0); Lymphocyte % 9.5 %; Mean Corpuscular HGB Conc 35 g/dL (31-36); Mean Corpuscular Hemoglobin 32 pg (27-31); Mean Corpuscular Volume 92 fL (80-97); Mean Platelet Volume 9.7 fL (7.4-10.4); Nucleated Red Blood Cells % 0.1; Platelet Count 82 10^3/uL (150-450); Red Cell Distribution Width 13 % (10-15); White Blood Count 11.4 10^3/uL (3.5-10.8)
[2019-11-18] MEDS ORDERED: Carboprost Tromethamine* 250 MCG INJ IM ONE (23:27)
[2019-11-19] MEDS ORDERED: Tranexamic Acid 1,000 MG/10 ML 1,000 MG in NS 0.9% 50 ML* 50 ML IV ONE (01:45)
[2019-11-19] MEDS ORDERED: Tranexamic Acid 1,000 MG/10 ML SDV ONE (01:49)
--- NOTE | 2019-11-19 02:16 | PN ---
Progress Note - Progress Note Date of Service: 11/18/19 Note: Called by RN, notified that pt is still saturating a Pad in hour At bedside, pt denies dizziness, lightheadedness, n/v BP elevated, VS otherwise stable Fundus at the umbilicus and firm. No bleeding noted with massage. Plan: Continue infusing Pitocin Give first dose of hemabate Repeat CBC
--- NOTE | 2019-11-19 02:28 | PN ---
Progress Note - Progress Note Date of Service: 11/19/19 Note: Called by RN, notified that bleeding has improved, though still with 1/2 to 1/4 pad saturated in 1 hr CBC - hgb 9.2, hct 27 - platelets down to 82 Consulted with Sydney Valles MD - advised of pt condition and results of recent CBC. Per Dr. Valles, give tranexamic acid Assessed pt at bedside with RN. Pt sleeping soundly Medication administered. Pt asymptomatic. Denies dizziness, lightheadedness, n/v - does report diarrhea following hemabate administration Fundus at the umbilicus and firm. No bleeding noted with massage. BP elevated, VS otherwise stable Encouraged pt to ambulate to bathroom. Pt denied blood loss when standing/with ambulation. Minimal bleeding noted with void. Voiding regularly, bladder scan with residual <150mL Plan: Pt to feed infant. Will check bleeding/fundus [id number]. Continue to monitor closely.
[2019-11-19] MEDS: Ibuprofen TAB* 600 MG PO SCH ×3 (05:30→18:58)
[2019-11-19 05:58] LABS: ABS Monocytes 0.6 10^3/ul (0-0.8); Hematocrit 27 % (35-47); Hemoglobin 9.7 g/dL (12.0-16.0); Lymphocyte % 9.5 %; Mean Corpuscular HGB Conc 36 g/dL (31-36); Mean Corpuscular Hemoglobin 33 pg (27-31); Mean Corpuscular Volume 92 fL (80-97); Mean Platelet Volume 9.1 fL (7.4-10.4); Platelet Count 82 10^3/uL (150-450); Red Blood Count 2.94 10^6 /uL (3.70-4.87); Red Cell Distribution Width 13 % (10-15); White Blood Count 10.6 10^3/uL (3.5-10.8)
[2019-11-19 06:16] LABS: Albumin 2.6 g/dL (3.2-5.2); BUN/Creatinine Ratio 15.8 (8-20); Calcium 8.4 mg/dL (8.6-10.3); EGFR African American 155.1 (>60); EGFR Non-African American 128.2 (>60); Globulin 2.5 g/dL (2-4); Potassium 3.9 mmol/L (3.5-5.0); Total Bilirubin 0.3 mg/dL (0.2-1.0); Total Protein 5.1 g/dL (6.4-8.9)
[2019-11-19] MEDS: Ferrous Gluconate TAB* 324 MG TAB PO SCH ×2 (09:59→20:42)
[2019-11-19] MEDS: Docusate CAP* 100 MG PO SCH ×3 (11:59→20:42)
[2019-11-20] MEDS: Ibuprofen TAB* 600 MG PO SCH ×2 (01:04→09:06)
[2019-11-20 09:01] VITALS: BP 140/87
[2019-11-20] MEDS: Ferrous Gluconate TAB* 324 MG TAB PO SCH (09:05)
[2019-11-20] MEDS: Docusate CAP* 100 MG PO SCH (09:06)
== END 2019-11-20 12:20 | disposition home or self-care (01) | DRG 541 ==
LOC: MCHOBOUT 11:34 → MCHOB 14:43
PROVIDERS: ADMIT Midwife; ATTEND Advanced Practice Midwife
PROC: 10E0XZZ Delivery of Products of Conception, External Approach (ICD-10-PCS; principal; 2019-11-18)
PROC: 4A1HXCZ Monitoring of Products of Conception, Cardiac Rate, External Approach (ICD-10-PCS; 2019-11-18)
PROC: 10D17Z9 Manual Extraction of Products of Conception, Retained, Via Natural or Artificial Opening (ICD-10-PCS; 2019-11-18)
PROC: 10907ZC Drainage of Amniotic Fluid, Therapeutic from Products of Conception, Via Natural or Artificial Opening (ICD-10-PCS; 2019-11-18)
DX: O14.04 Mild to moderate pre-eclampsia, complicating childbirth (principal); O99.12 Other diseases of the blood and blood-forming organs and certain disorders involving the immune mechanism complicating childbirth; Z37.0 Single live birth; D62 Acute posthemorrhagic anemia; O72.0 Third-stage hemorrhage; D69.6 Thrombocytopenia, unspecified; O71.82 Other specified trauma to perineum and vulva; O90.81 Anemia of the puerperium; O99.214 Obesity complicating childbirth; Z3A.38 38 weeks gestation of pregnancy
CPT/HCPCS: 36415; 59200; 80053; 80307; 81003; 81015; 84550; 85025; 85060; 86850; 86900; 86901; 87086; 88307; A9270-GY; G0480; J0690; J2405; J3010; S0191